=== PATIENT | male | born 1995 | race Caucasian/White ===

== ENCOUNTER 2017-10-23 21:27 | Emergency (ER) | payer SELFPAY ==
[~2017-10-23 21:27] MED LIST: ISOVUE-370 76%-LOCM 1 ML ONE
[2017-10-23] MEDS ORDERED: Adacel (T-DAP) 0.5 ML VIAL ONE (21:40)
[2017-10-23 21:48] LABS: #Eosinphils 0.1 thou/uL (0.0-0.7); #Lymphocytes 1.6 thou/uL (1.20-3.40); #Monocytes 0.6 thou/uL (0.11-0.59); #Neutrophils 4.5 thou/uL (1.40-6.50); %Basophils 0.2 % (0.0-1.0); %Eosinophils 1.7 % (0.0-10.0); %Lymphocytes 23.4 % (21.0-51.0); %Monocytes 8.9 % (0.0-10.0); %Neutrophils 65.8 % (42.0-75.0); Hemoglobin 15.9 g/dL (14.0-18.0); Mean Corpuscular HGB CONC 34.4 g/dL (32.0-36.0); Mean Corpuscular Hemoglobin 32.7 pg (27.0-31.0); Platelet Count 174 thou/uL (130-400); RBC Distribution Width 11.6 % (11.5-14.5); Red Blood Cell (RBC) Count 4.86 mill/uL (4.70-6.10); White Blood Cell (WBC) Count 6.9 thou/uL (4.8-10.8)
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
[2017-10-23 22:07] LABS: PTT 26.3 SEC (22.9-36.1); Prothrombin Time 13.7 SEC (12.0-14.7)
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
[2017-10-23 22:22] LABS: ALT (SGPT) 55 U/L (8-55); AST (SGOT) 71 U/L (5-34); Albumin 4.4 g/dL (3.5-5.0); Alcohol Less than 10 mg/dL (Less than 10); Alkaline Phosphatase 43 U/L (40-150); Anion Gap 12 mmol/L (10-20); BUN (Urea Nitrogen) 14 mg/dL (8.9-20.6); Bilirubin, Total 0.6 mg/dL (0.2-1.2); Calc. Creatinine Clearance 0 mL/min (70-130); Calcium 9.2 mg/dL (7.8-10.44); Carbon Dioxide 26 mmol/L (22-29); Chloride 103 mmol/L (98-107); Estimated GFR-MDRD 84; Globulin 2.3 g/dL (2.4-3.5); Glucose 188 mg/dL (70-105); Potassium 3.8 mmol/L (3.5-5.1); Protein, Total 6.7 g/dL (6.0-8.3); Sodium 137 mmol/L (136-145)
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
[2017-10-23] MEDS ORDERED: Ketorolac Tromethamine 30 MG/ML VIAL ONE (22:49)
[2017-10-23 23:44] LABS: Troponin I 0.022 ng/mL (< 0.028)
== END 2017-10-24 00:25 | disposition home or self-care (01) ==
LOC: ERS 21:27
DX: S06.0X9A Concussion with loss of consciousness of unspecified duration, initial encounter (principal); S20.212A Contusion of left front wall of thorax, initial encounter; S10.91XA Abrasion of unspecified part of neck, initial encounter; F90.9 Attention-deficit hyperactivity disorder, unspecified type; F17.200 Nicotine dependence, unspecified, uncomplicated; V29.9XXA Motorcycle rider (driver) (passenger) injured in unspecified traffic accident, initial encounter
CPT/HCPCS: 70450; 71045; 71260; 72125; 72170; 74177; 80053; 80307; 84484; 85025; 85610; 85730; 86850; 86900; 86901; 90471; 90715; 93005; 96374; G0390; J1885